=== PATIENT | female | born 1985 | race Caucasian/White ===

== ENCOUNTER 2017-04-10 02:19 | Emergency (ER) | payer OTHER, MEDICAID ==
[2017-04-10] MEDS: IPRATROPIUM (NEB) 0.5 MG/2.5 ML AMP HHN (07:16)
[2017-04-10] MEDS: ALBUTEROL 0.083% (NEB) 2.5 MG/3 ML AMP HHN (07:16)
[2017-04-10] MEDS: predniSONE 20 MG TAB PO (07:20)
== END 2017-04-10 08:50 | disposition home or self-care (01) ==
LOC: FTE 02:19
DX: R05 Cough (principal)
CPT/HCPCS: 71045; 94664; 99284-25